=== PATIENT | female | born 1955 | race Caucasian/White ===

== ENCOUNTER 2022-07-03 09:29 | Outpatient (CLI) | payer MEDICARE, OTHER | END 2022-07-03 09:30 | disposition short-term general hospital (02) | LOC: EMS 09:29 | DX: M25.552 Pain in left hip (principal); M79.605 Pain in left leg; M25.531 Pain in right wrist; S01.81XA Laceration without foreign body of other part of head, initial encounter; W01.0XXA Fall on same level from slipping, tripping and stumbling without subsequent striking against object, initial encounter; Y92.481 Parking lot as the place of occurrence of the external cause | CPT/HCPCS: A0425; A0427 ==